=== PATIENT | female | born 1970 | race Caucasian/White ===

== ENCOUNTER 2022-03-19 08:34 | Emergency (ER) | payer OTHER, SELFPAY ==
[2022-03-19 08:39] VITALS: BP 157/96; PULSE 75; RESP 18; TEMP 36.6; O2SAT 97
--- NOTE | 2022-03-19 12:47 | ED.GENADULT ---
HPI - General Adult General Date Seen: 03/19/22 Chief complaint: Back Injury/Pain Stated complaint: Backpain/right side/nausea Time Seen by Provider: 03/19/22 08:53 Source: patient Mode of arrival: ambulatory Limitations: no limitations History of Present Illness HPI narrative: Patient is a 52-year-old woman who says that since Saturday night she has been having some pain in her right back. It hurts when she moves and hurts to lay on the right side of her back. It also hurts to take deep breath although she does not have any shortness of breath, cough, fever. She has had a little bit of nausea she thinks related to the pain but she has not had any vomiting. Eating and drinking has been normal. She says that she had some [place] on Saturday night, and she says they use a lot of butter there and she started to wonder whether not she had caused her gallbladder flare up. She says that she has had problems with her gallbladder in the past, she says it has been many many years and they told her to manage it with her diet so she has always been careful about her diet and has not had problems in a long time. But, since she had the butter on Saturday, and then started to have pain Saturday, she started to wonder if might be her gallbladder. She has had pain in the right back since then, it has been constant. She tried some Tylenol which did seem to help. She has not had any fever, no urinary symptoms. It hurts to push on that area. She does not have any history of DVT or PE, she has not had any lower extremity swelling or pain. Related Data Home Medications Medication Instructions Recorded Confirmed atorvastatin 10 mg tablet 10 mg PO QHS 01/16/22 03/19/22 semaglutide 2 mg/dose (8 mg/3 mL) 2 mg subcut QWEEK 03/19/22 03/19/22 subcutaneous pen injector (Ozempic) Allergies Allergy/AdvReac Type Severity Reaction Status Date / Time metformin Allergy Mild Verified 03/19/22 08:43 Review of Systems Status of ROS: Reports: 10 or more systems reviewed and unremarkable except as noted in History and below PFSH PFS Social History Smoking Status: Current every day smoker What tobacco products do you use: cigarettes Do you use any of these nicotine containing products: None Second hand tobacco smoke exposure: No How often do you have a drink containing alcohol: monthly or less How many standard drinks containing alcohol do you have on a typical day: 1 or 2 How often do you have six or more drinks on one occasion: Never AUDIT-C Alcohol total score: 1 Non-prescribed substance use: denies use Exam Narrative: Exam Narrative: Vital signs as noted above. In general, an alert, well-appearing patient. Breathing comfortably. Head: Normocephalic, atraumatic. Eyes: Pupils are equal reactive. Extraocular movements are full. Conjunctivae are normal. ENT: Mucous membranes are moist. Throat is normal. Neck: Supple without lymphadenopathy. Heart: Regular rate and rhythm. No murmur or rub. Lungs: Clear bilaterally. No increased work of breathing, crackles or wheezes. Back: Reproducible tenderness in the right lower thoracic area with tender musculature, no rash. Abdomen: Soft and nontender. No organomegaly. Specifically, no right upper quadrant tenderness, negative Elizabeth's. Extremities: Well perfused. No edema. No calf tenderness. Pulses intact. Neurologic: Patient is alert and oriented to person and place. Speech is fluent. Face is symmetric. Moves all extremities equally. Affect: Normal. Skin: Warm and dry. Well perfused. Const: Vital Signs, click to edit/add: Vital Signs - 24 hr 03/19/22 08:39 Temperature 97.8 F Pulse Rate [Right Pulse Oximeter] 75 Respiratory Rate 18 Blood Pressure [Ri ght Upper Arm] 157/96 H Pulse Oximetry 97 Oxygen Delivery Me thod Room Air Documenting provider has reviewed patient's vital signs: yes Course Course Hospital Course: Discussed with patient that in the absence of abdominal pain or tenderness, with constant pain for 2 days, and with easily reproducible pain in the right flank area, I do not think this represents gallbladder symptoms. I offered to do lab work if she would like to have confirmation of this, but did suggest to her that I think that labs will confirm that this is not her gallbladder. She does not have any urinary symptoms, and she does have definite muscular tenderness here, I do not think this likely represents kidney stone, or pyelonephritis in the absence of fever or urinary symptoms. While she does not have an identifiable inciting event, she has clearly reproducible muscular tenderness and in that is worsened with movement. She elected to forego labs today. I recommended use of ibuprofen and Tylenol over the next few days, with the caveats that if she is worsening or develops new symptoms such as fever, urinary symptoms, vomiting, shortness of breath or other new symptoms that she come back. She is not tachycardic or tachypneic, does not have any complaints of shortness of breath, lower extremity swelling or pain and does not have any risk factors for pulmonary embolism. I do not think this represents PE. Primary care follow-up if not improving over the next week or so. Vital Signs Vital signs: Initial Vital Signs Temperature 97.8 F 03/19/22 08:39 Temperature Source Temporal Artery Scan 03/19/22 08:39 Pulse Rate 75 03/19/22 08:39 Pulse Rhythm 03/19/22 08:39 Respiratory Rate 18 03/19/22 08:39 Blood Pressure 157/96 H 03/19/22 08:39 Blood Pressure Mean 116 03/19/22 08:39 Blood Pressure Position Sitting 03/19/22 08:39 Pulse Oximetry 97 03/19/22 08:39 Oxygen Delivery Method 03/19/22 08:39 Vital Signs Temperature 97.8 F 03/19/22 08:39 Pulse Rate 75 03/19/22 08:39 Respiratory Rate 18 03/19/22 08:39 Blood Pressure 157/96 H 03/19/22 08:39 Pulse Oximetry 97 03/19/22 08:39 Oxygen Delivery Method 03/19/22 08:39 Temperature 97.8 F 03/19/22 08:39 Pulse Rate 75 03/19/22 08:39 Respiratory Rate 18 03/19/22 08:39 Blood Pressure 157/96 H 03/19/22 08:39 Pulse Oximetry 97 03/19/22 08:39 Oxygen Delivery Method 03/19/22 08:39 Discharge Plan Discharge Clinical Impression: Thoracic back pain Patient Disposition: Home, Self-Care Condition: Stable Instructions: Thoracic Pain (ED) Additional Instructions: Ibuprofen 400 mg plus Tylenol 1000 mg 3 times daily with food. Ice and/or heat. Pain should improve over 7-10 days, if not, recheck with primary care. Return to the ER at any time for worsening symptoms such as shortness of breath, fever, cough, severe uncontrolled pain. Prescriptions: No Action Ozempic 2 mg/dose (8 mg/3 mL) pen injector 2 mg subcut QWEEK atorvastatin 10 mg tablet 10 mg PO QHS Stand Alone Forms: My[facility] Info Instructions
== END 2022-03-19 09:39 | disposition home or self-care (01) ==
PROVIDERS: Emergency Provider Emergency Medicine
DX: M54.6 Pain in thoracic spine (principal)
CPT/HCPCS: 99282; 99283